=== PATIENT | female | born 1985 | race Two or more races ===

== ENCOUNTER 2024-02-07 09:14 | Emergency (ER) | payer OTHER ==
[2024-02-07 09:22] VITALS: BP 120/80; PULSE 91; RESP 18; TEMP 98.3; BMI 27.8
[2024-02-07] MEDS ORDERED: ALBUTEROL SO4 2.5/IPRATROPIUM 0.5 INH SOL 3 ML VIAL.NEB. NEB ONE (15:14)
== END 2024-02-07 10:23 | disposition home or self-care (01) ==
LOC: JERFT 09:14
DX: S05.01XA Injury of conjunctiva and corneal abrasion without foreign body, right eye, initial encounter (principal); X58.XXXA Exposure to other specified factors, initial encounter
CPT/HCPCS: 99283-25